=== PATIENT | male | born 1960 | race Caucasian/White ===

== ENCOUNTER 2018-10-10 07:25 | Outpatient (CLI) ==
[2015-12-01 14:27] VITALS: BMI 22.8
== END 2018-10-10 07:41 | disposition short-term general hospital (02) ==
LOC: AMBL 07:25
PROVIDERS: ATTEND Emergency Medicine
DX: T42.4X1A Poisoning by benzodiazepines, accidental (unintentional), initial encounter (principal); R41.0 Disorientation, unspecified; R47.81 Slurred speech